=== PATIENT | male | born 1945 | race Caucasian/White ===

== ENCOUNTER → 2018-06-22 | Outpatient (CLI) | payer MEDICARE, OTHER ==
[~2018-06-22] MED LIST: ALLO100T70 PO; ASPI-757 PO; CA C1TAB85 PO; CALC-1046 PO; CHLO1CAP12 PO; CHLO1CAP45 PO; CHOL10005 PO; CYAN100088 PO; CYAN500T54 PO; DIPH0.5D12 IM; FLU180SY11 IM; FLU45SYR25 IM ONLY; FLUT16SP19 NS; GABA-503 PO; GABA-547 PO; HYDR-385 PO; KET10 PO; LEVO750T44 PO; MELO-207 PO; METR-1 PO; NABU-1 PO; NOR PO; OLOOD OU; OMEP-114 PO; OMEP-137 PO; OMEP40CA48 PO; ORP100 PO; OXYC-865 PO; PNEU0.5D3 IM; PRED2.5T6 PO; PROL80 PO; PROP80CA40 PO; PROP80TA25 PO; SIMV-49 PO; STOMACH MED; SUM25 PO; ZOLM2.5 PO; ZONI100C49 PO; [UNRECOGNIZED DRUG - CODE] PO; [UNRECOGNIZED DRUG - CODE] PO
--- NOTE | 2018-06-22 13:44 | RADIOLOGY IMAGING REPORT ---
FACILITY: [facility] - [place] PATIENT NAME: Chilango Ayala : 1945 MR: [id number] V: [id number] EXAM DATE: ORDERING PHYSICIAN: SABRINA MARTIN TECHNOLOGIST: Location: [facility] [place] Patient: Chilango Ayala : 1945 Visit/Account:[id number] Date of Sevice: 06/22/2018 KIDNEYS EXAMINATION: Renal ultrasound. History: Chronic kidney disease decreased creatinine levels COMPARISON STUDIES: CT on pelvis March 20, 2013 FINDINGS: Kidneys: Right kidney- 10.3 x 5.5 x 4.9 cm Left kidney- 11.9 x 5.5 x 5 cm Uniform and symmetric blood flow in each kidney by Doppler ultrasound. Hydronephrosis: none There is no evidence of cortical thinning. The resistive index on the right is 0.66 on the left 0.64 . There is a 5 cm cyst projecting from the upper pole of the left kidney Bladder: Prevoid volume 189 mL. Post for residual 11.6 mm. Bilateral ureteral jets are present. Abdominal aorta and IVC: Aorta and IVC are patent by Doppler ultrasound. IMPRESSION: 5 cm cyst projects from the upper pole the left kidney Report Dictated By: Kitty Escobar MD at 06/22/2018 1:37 PM Report E-Signed By: Kitty Escobar MD at 06/22/2018 1:39 PM WSN:[id number]
== END ==
LOC: US 02:41
PROVIDERS: ATTEND Internal Medicine
DX: N28.1 Cyst of kidney, acquired (principal)
CPT/HCPCS: 76705